=== PATIENT | female | born 1950 | race African-American/Black ===

== ENCOUNTER → 2016-12-14 | Outpatient (CLI) | payer MEDICARE, MEDICAID ==
--- NOTE | 2016-12-14 15:16 | Diagnostic Imaging Report ---
Indication: COUGH Technique: One view of the chest Comparison: none Findings: Lungs and pleural spaces are clear. Heart size is normal. There is degenerative spondylosis of the thoracolumbar junction Impression: No acute process
== END | disposition home or self-care (01) ==
LOC: RAD 12:46
DX: R05 Cough (principal); M47.895 Other spondylosis, thoracolumbar region
CPT/HCPCS: 71020

== ENCOUNTER 2018-02-11 08:48 | Outpatient (CLI) | payer MEDICARE, MEDICAID ==
--- NOTE | 2018-02-11 11:49 | Diagnostic Imaging Report ---
Indication: Pain and swelling, bilateral fine masses Technique: No IV contrast, per referring physician request Spiral acquisitions obtained through the right thigh Multiplanar reconstructions were generated. Total dose length product 1342 mGycm. CTDIvol(s) 19 mGy. Radiation dose was minimized using automated exposure control Comparison: none Findings: Surgical hardware is seen reducing old distal femoral fracture. This appears healed with some overlying bony callus. Extensive degenerative changes of the right knee are noted. There is skin thickening posteromedially of the distal thigh, with infiltration of the subjacent subcutaneous fat. This is fairly symmetric and compared to the contralateral side No discrete fluid collection is demonstrated. No mass demonstrated. No abnormal fluid collections are demonstrated. There are minimal degenerative changes of the right hip joint. Surgical hardware is seen within the lumbosacral junction. Impression: Skin thickening and infiltration of the adjacent subcutaneous fat involving the distal posterior medial right thigh. This could represent soft tissue cellulitis. This is symmetric when compared to the contralateral side Correlation with clinical findings is recommended No evidence of high mass, abscess, or fluid collection Posttraumatic and postsurgical changes of the distal femur Extensive degenerative changes of the right knee joint. Less extensive degenerative changes of the right hip Evidence of prior lumbosacral junction surgery The CT scanner at [facility] is accredited by the [employer] and the scans are performed using protocols designed to limit radiation exposure to as low as reasonably achievable to attain images of sufficient resolution adequate for diagnostic evaluation.
--- NOTE | 2018-02-11 12:30 | Diagnostic Imaging Report ---
Indication: Pain and swelling, bilateral thigh masses Technique: No IV contrast, per referring physician request. Spiral acquisitions obtained through the left thigh Multiplanar reconstructions were generated. Total dose length product 1383 mGycm. CTDIvol(s) 18 mGy. Radiation dose was minimized using automated exposure control Comparison: none Findings: There is thickening of the skin and infiltration of the subjacent subcutaneous fat involving the posterior and medial distal thigh. There is a left knee prosthesis. This throws off streak artifact which could obscure pathology. No definite discrete fluid collection demonstrated. No unusual masses. No definite joint effusion. There are mild degenerative changes of the left hip. No acute fractures. Surgical hardware is seen in the sacrum and lower lumbar spine Impression: Skin thickening and infiltration of the sedation subcutaneous fat involving the posterior medial distal thigh. Appearance nonspecific but likely on the basis of cellulitis. Findings are similar to the contralateral side. Correlate with clinical findings No discrete fluid collection or mass demonstrated. Postsurgical changes, as described Mild degenerative changes of the left hip The CT scanner at [facility] is accredited by the [employer] and the scans are performed using protocols designed to limit radiation exposure to as low as reasonably achievable to attain images of sufficient resolution adequate for diagnostic evaluation.
== END 2018-02-11 10:48 | disposition home or self-care (01) ==
LOC: CAT 08:48
DX: R22.43 Localized swelling, mass and lump, lower limb, bilateral (principal)